=== PATIENT | female | born 2000 | race Caucasian/White ===

== ENCOUNTER 2022-01-17 14:09 | Emergency (ER) | payer BC ==
[2022-01-17 15:04] LABS: #Eosinphils 0.1 10x3/uL (0.0-0.5); #Monocytes 0.6 10x3/uL (0.0-1.1); #Neutrophils 4.5 10x3/uL (1.5-8.4); %Basophils 0.6 % (0.0-2.0); %Eosinophils 1.7 % (0.0-6.0); %Lymphocytes 24.9 % (18.0-47.0); %Monocytes 8.7 % (0.0-10.0); %Neutrophils 63.7 % (40.0-75.0); Hemoglobin 10.9 g/dL (12.0-15.5); Mean Corpuscular HGB CONC 33.6 g/dL (32.0-36.0); Mean Corpuscular Hemoglobin 26.3 pg (27.0-33.0); Mean Corpuscular Volume 78.1 fl (81.6-98.3); Mean Platelet Volume 9.7 fl (7.4-10.4); Platelet Count 265 10x3/uL (150-450); RBC Distribution Width 14.8 % (11.5-14.5); Red Blood Cell (RBC) Count 4.15 10x6/uL (3.90-5.03)
[2022-01-17 15:08] LABS: ALT (SGPT) 10 U/L (8-55); AST (SGOT) 14 U/L (5-34); Albumin 3.6 g/dL (3.5-5.0); Alkaline Phosphatase 42 U/L (40-110); Anion Gap 12 mmol/L (10-20); BUN (Urea Nitrogen) 9 mg/dL (7.0-18.7); Bilirubin, Total 0.9 mg/dL (0.2-1.2); Calc. Creatinine Clearance 0 mL/min (70-130); Calcium 8.3 mg/dL (7.8-10.44); Carbon Dioxide 24 mmol/L (22-29); Chloride 106 mmol/L (98-107); Globulin 2.8 g/dL (2.4-3.5); Glucose 99 mg/dL (70-105); Potassium 3.6 mmol/L (3.5-5.1); Protein, Total 6.4 g/dL (6.0-8.3); Sodium 138 mmol/L (136-145)
[2022-01-17 15:36] LABS: Bilirubin Neg (Negative); Blood, Urine 250 (Negative); Clarity Clear (Clear); Glucose, Urine (Dipstick) Normal (Negative); Ketone, Urine Negative (Negative); Leukocyte Negative (Negative); Nitrite Negative (Negative); Protein, Urine (Dipstick) 15 mg/dl (Neg-Trace)
[2022-01-17 15:50] LABS: Bacteria/HPF Rare-Few HPF (None Seen); RBC/HPF Greater than 50 HPF (0-3); Squamous Epithelial 0-3 HPF (0-3); WBC/HPF 0-3 HPF (0-3)
== END 2022-01-17 16:19 | disposition home or self-care (01) ==
LOC: CSHERS 14:09
DX: O20.9 Hemorrhage in early pregnancy, unspecified (principal); O99.891 Other specified diseases and conditions complicating pregnancy; R10.9 Unspecified abdominal pain; Z3A.14 14 weeks gestation of pregnancy
CPT/HCPCS: 36415; 76815; 80053; 81003; 81015; 84702; 85025; 86900; 86901

== ENCOUNTER 2022-07-02 17:53 | Inpatient (IN) | payer BC ==
[~2022-07-02 17:53] MED LIST: Bupivacaine/Epinephrine 0.25% 30 ML VIAL ONE
[2022-07-02] MEDS: Lactated Ringer's 1,000 ML IV SCH (18:12)
[2022-07-02] MEDS: Magnesium Sulfate 20 gm/500 ml 20 GM/500 ML BAG IVPB SCH (18:12)
[2022-07-02] MEDS ORDERED: Lorazepam 2 MG/ML VIAL SLOW IVP PRN (18:23)
[2022-07-02] MEDS ORDERED: Ondansetron PF 4 MG/2 ML Vial IVP PRN (18:23)
[2022-07-02] MEDS ORDERED: Butorphanol Tartrate 1 MG/ML VIAL SLOW IVP PRN (18:23)
[2022-07-02] MEDS ORDERED: Calcium Gluc 4.6 MEQ/10 ML (100 MG/ML) SLOW IVP PRN (18:23)
[2022-07-02] MEDS ORDERED: Promethazine HCl 25 MG/ML VIAL IM PRN (18:23)
[2022-07-02] MEDS ORDERED: Labetalol HCl 100 MG/20 ML VIAL SLOW IVP PRN (18:23)
[2022-07-02] MEDS ORDERED: hydrALAZINE 20 MG/ML VIAL SLOW IVP PRN ×2 (18:23)
[2022-07-02] MEDS ORDERED: Acetaminophen 500 MG TAB PO PRN (18:23)
[2022-07-02] MEDS ORDERED: Magnesium Sulfate 20 gm/500 ml 20 GM/500 ML BAG IVPB SCH (18:30)
[2022-07-02] MEDS ORDERED: Ondansetron PF 4 MG/2 ML Vial ONE (18:30)
[2022-07-02] MEDS ORDERED: Lorazepam 2 MG/ML VIAL ONE (18:34)
[2022-07-02] MEDS ORDERED: hydrALAZINE 20 MG/ML VIAL ONE (18:35)
[2022-07-02] MEDS ORDERED: Magnesium Sulfate 20 gm/500 ml 20 GM/500 ML BAG ONE (18:35)
[2022-07-02] MEDS ORDERED: Labetalol HCl 100 MG/20 ML VIAL ONE (18:35)
[2022-07-02 18:51] VITALS: BMI 28.3
[2022-07-02 19:33] LABS: #Basophils 0.1 10x3/uL (0.0-0.2); #Eosinphils 0.1 10x3/uL (0.0-0.5); #Monocytes 0.9 10x3/uL (0.0-1.1); %Basophils 0.6 % (0.0-2.0); %Eosinophils 0.8 % (0.0-6.0); %Lymphocytes 14.1 % (18.0-47.0); %Monocytes 6.6 % (0.0-10.0); %Neutrophils 75.5 % (40.0-75.0); Hemoglobin 11.6 g/dL (12.0-15.5); Mean Corpuscular HGB CONC 32.3 g/dL (32.0-36.0); Mean Corpuscular Hemoglobin 24.9 pg (27.0-33.0); Mean Platelet Volume 10.4 fl (7.4-10.4); Platelet Count 284 10x3/uL (150-450); RBC Distribution Width 27.9 % (11.5-14.5); Red Blood Cell (RBC) Count 4.66 10x6/uL (3.90-5.03); White Blood Cell (WBC) Count 13.2 10x3/uL (3.5-10.5)
[2022-07-02 19:39] LABS: Amphetamine Detected (NotDetected); Barbiturates Screen Not Detected (NotDetected); Benzodiazepine Screen Not Detected (NotDetected); Cocaine Metabolite Screen Not Detected (NotDetected); Methadone Not Detected (NotDetected); Methamphetamine Not Detected (NotDetected); Opiate Screen Not Detected (NotDetected); Oxycodone Screen Not Detected (NotDetected); Phencyclidine (PCP) Not Detected (NotDetected); THC/Cannabinoid Screen Not Detected (NotDetected); Tricyclic Screen Not Detected (NotDetected)
[2022-07-02 19:46] LABS: Creatinine, Urine 37.85 mg/dL (47-110)
[2022-07-02 19:50] LABS: ALT (SGPT) 38 U/L (8-55); AST (SGOT) 72 U/L (5-34); Albumin 3.2 g/dL (3.5-5.0); Alkaline Phosphatase 178 U/L (40-110); Anion Gap 17 mmol/L (10-20); BUN (Urea Nitrogen) 11 mg/dL (7.0-18.7); Bilirubin, Total 0.4 mg/dL (0.2-1.2); Calc. Creatinine Clearance 127 mL/min (70-130); Calcium 9.3 mg/dL (7.8-10.44); Carbon Dioxide 18 mmol/L (22-29); Chloride 106 mmol/L (98-107); Estimated GFR 100; Globulin 3.4 g/dL (2.4-3.5); Glucose 89 mg/dL (70-105); Protein, Total 6.6 g/dL (6.0-8.3); Sodium 137 mmol/L (136-145)
[2022-07-02 20:24] LABS: Hep B Surf Ag Non-Reactive S/CO (NonReactive); Syphilis Antibody Nonreactive (Nonreactive); Syphilis Antibody Index 0.05 S/CO (<1.00 Non-Reactive)
[2022-07-02 20:25] LABS: HBSAg Index 0.17 S/CO (0-0.99)
[2022-07-02 20:40] LABS: SARS-CoV-2 NAA Rapid Test Not Detected (NotDetected)
[2022-07-02] MEDS ORDERED: Ibuprofen 800 MG TAB PO PRN (21:17)
[2022-07-02] MEDS ORDERED: Misoprostol 200 MCG TAB PR PRN (21:17)
[2022-07-02] MEDS ORDERED: Lidocaine 1% (PF) 30 ML VIAL SC PRN (21:17)
[2022-07-02] MEDS ORDERED: NS w/ Oxytocin 30 units 500 ML IV SCH ×2 (21:30)
[2022-07-02] MEDS ORDERED: hydrOXYzine 25 MG TAB PO SCH (21:45)
[2022-07-03] MEDS ORDERED: Fentanyl 2 mcg/Bup 0.1% Cadd 100 ML ONE (06:35)
[2022-07-03 07:04] LABS: #Basophils 0.1 10x3/uL (0.0-0.2); #Monocytes 0.7 10x3/uL (0.0-1.1); #Neutrophils 9.6 10x3/uL (1.5-8.4); %Basophils 0.5 % (0.0-2.0); %Eosinophils 0.1 % (0.0-6.0); %Lymphocytes 12.6 % (18.0-47.0); %Monocytes 5.8 % (0.0-10.0); %Neutrophils 79.3 % (40.0-75.0); Hemoglobin 11.2 g/dL (12.0-15.5); Mean Corpuscular HGB CONC 32.9 g/dL (32.0-36.0); Mean Corpuscular Hemoglobin 25.3 pg (27.0-33.0); Mean Corpuscular Volume 76.7 fl (81.6-98.3); Mean Platelet Volume 10.3 fl (7.4-10.4); Platelet Count 237 10x3/uL (150-450); Red Blood Cell (RBC) Count 4.43 10x6/uL (3.90-5.03)
[2022-07-03 07:13] LABS: ALT (SGPT) 33 U/L (8-55); AST (SGOT) 59 U/L (5-34); Albumin 2.9 g/dL (3.5-5.0); Alkaline Phosphatase 173 U/L (40-110); Anion Gap 16 mmol/L (10-20); BUN (Urea Nitrogen) 10 mg/dL (7.0-18.7); Bilirubin, Total 0.4 mg/dL (0.2-1.2); Calc. Creatinine Clearance 116 mL/min (70-130); Calcium 7.8 mg/dL (7.8-10.44); Carbon Dioxide 19 mmol/L (22-29); Chloride 104 mmol/L (98-107); Estimated GFR 90; Globulin 3.4 g/dL (2.4-3.5); Glucose 94 mg/dL (70-105); Magnesium 6.8 mg/dL (1.6-2.6); Protein, Total 6.3 g/dL (6.0-8.3); Sodium 135 mmol/L (136-145)
[2022-07-03] MEDS ORDERED: Acetaminophen 325 MG TAB PO PRN (08:05)
[2022-07-03] MEDS ORDERED: Naloxone HCl 0.4 mg/ml Vial IVP PRN ×2 (08:05)
[2022-07-03] MEDS ORDERED: diphenhydrAMINE 50 MG/ML VIAL IVP PRN (08:05)
[2022-07-03] MEDS ORDERED: Lactated Ringer's 500 ML IV PRN (08:05)
[2022-07-03] MEDS ORDERED: Promethazine HCl 25 MG/ML VIAL IM PRN (08:05)
[2022-07-03] MEDS ORDERED: Ondansetron PF 4 MG/2 ML Vial IVP PRN (08:05)
[2022-07-03] MEDS ORDERED: ePHEDrine Sulfate 50 MG/10 ML VIAL SLOW IVP PRN (08:05)
[2022-07-03] MEDS ORDERED: Moisturizing Cream (Eucerin) 113 GM JAR TOP PRN (08:05)
[2022-07-03] MEDS ORDERED: Fentanyl 2 mcg/Bupivacaine 0.1% Cassette 100 ML EPIDURAL SCH (08:15)
[2022-07-03] MEDS ORDERED: Communication Order-Pharmacy FS SCH (08:15)
[2022-07-03] MEDS ORDERED: Milk Of Magnesia 30 ML UDCUP PO PRN (10:20)
[2022-07-03] MEDS ORDERED: Calcium Gluc 4.6 MEQ/10 ML (100 MG/ML) SLOW IVP PRN (10:20)
[2022-07-03] MEDS ORDERED: Lorazepam 2 MG/ML VIAL SLOW IVP PRN (10:20)
[2022-07-03] MEDS ORDERED: Boostrix 0.5 ML (Tdap) VIAL IM ONE (10:20)
[2022-07-03] MEDS ORDERED: Bisacodyl 10 MG SUPP PR PRN (10:20)
[2022-07-03] MEDS ORDERED: hydrALAZINE 20 MG/ML VIAL SLOW IVP PRN (10:20)
[2022-07-03] MEDS: Lactated Ringer's 1,000 ML IV SCH (13:10)
[2022-07-03] MEDS ORDERED: Labetalol HCl 100 MG TAB PO SCH ×2 (13:15→21:00)
[2022-07-03] MEDS: Ibuprofen 800 MG TAB PO SCH ×2 (13:24→22:37)
[2022-07-03] MEDS: Magnesium Sulfate 20 gm/500 ml 20 GM/500 ML BAG IVPB SCH (13:27)
[2022-07-03] MEDS: Ferrous Sulfate 325 MG TAB PO SCH (17:21)
[2022-07-03] MEDS: guaiFENesin ER 600 MG TAB PO PRN (18:47)
[2022-07-03] MEDS ORDERED: Docusate 100 MG CAP PO SCH (21:00)
[2022-07-04 05:33] LABS: ALT (SGPT) 22 U/L (8-55); AST (SGOT) 24 U/L (5-34); Albumin 2.3 g/dL (3.5-5.0); Alkaline Phosphatase 115 U/L (40-110); Anion Gap 12 mmol/L (10-20); BUN (Urea Nitrogen) 9 mg/dL (7.0-18.7); Bilirubin, Total 0.2 mg/dL (0.2-1.2); Calc. Creatinine Clearance 120 mL/min (70-130); Calcium 7.4 mg/dL (7.8-10.44); Carbon Dioxide 22 mmol/L (22-29); Chloride 108 mmol/L (98-107); Estimated GFR 93; Globulin 2.7 g/dL (2.4-3.5); Glucose 96 mg/dL (70-105); Potassium 4.2 mmol/L (3.5-5.1); Sodium 138 mmol/L (136-145)
[2022-07-04 06:16] LABS: #Eosinphils 0.1 10x3/uL (0.0-0.5); #Monocytes 0.8 10x3/uL (0.0-1.1); #Neutrophils 6.4 10x3/uL (1.5-8.4); %Basophils 0.4 % (0.0-2.0); %Eosinophils 1.5 % (0.0-6.0); %Lymphocytes 23.1 % (18.0-47.0); %Monocytes 7.8 % (0.0-10.0); %Neutrophils 66.6 % (40.0-75.0); Hemoglobin 9.7 g/dL (12.0-15.5); Macrocytosis SLIGHT = 6-15 cells (100X) (0-5/hpf); Mean Corpuscular HGB CONC 32.1 g/dL (32.0-36.0); Mean Corpuscular Hemoglobin 25.3 pg (27.0-33.0); Mean Corpuscular Volume 78.6 fl (81.6-98.3); Mean Platelet Volume 9.9 fl (7.4-10.4); Microcytosis MODERATE=15-30 cells (100X) (0-5/hpf); Platelet Count 208 10x3/uL (150-450); Red Blood Cell (RBC) Count 3.84 10x6/uL (3.90-5.03); White Blood Cell (WBC) Count 9.6 10x3/uL (3.5-10.5)
[2022-07-04 06:18] LABS: Platelet Morphology Comment Appears Adequate
[2022-07-04] MEDS: guaiFENesin ER 600 MG TAB PO PRN ×2 (07:01→23:56)
[2022-07-04] MEDS: Ibuprofen 800 MG TAB PO SCH ×3 (07:11→21:31)
[2022-07-04] MEDS ORDERED: Preparation H Ointment 28 GM TUBE PR PRN (07:55)
[2022-07-04] MEDS ORDERED: diphenhydrAMINE 25 MG CAP PO PRN (07:55)
[2022-07-04] MEDS ORDERED: Bisacodyl 10 MG SUPP PR PRN (07:55)
[2022-07-04] MEDS ORDERED: hydrALAZINE 20 MG/ML VIAL SLOW IVP PRN (07:55)
[2022-07-04] MEDS ORDERED: Lanolin Ointment 7 GM TUBE TOP PRN (07:55)
[2022-07-04] MEDS ORDERED: Milk Of Magnesia 30 ML UDCUP PO PRN (07:55)
[2022-07-04] MEDS ORDERED: Ondansetron PF 4 MG/2 ML Vial IVP PRN (07:55)
[2022-07-04] MEDS ORDERED: Ferrous Sulfate 325 MG TAB PO SCH ×2 (08:00→08:30)
[2022-07-04] MEDS: Ferrous Sulfate 325 MG TAB PO SCH ×2 (08:01→14:51)
[2022-07-04] MEDS: Amoxicillin/Potassium Clav 875 MG TAB PO SCH ×2 (09:03→21:32)
[2022-07-04] MEDS: Prenatal Vitamin 1 TAB PO SCH (09:03)
[2022-07-04] MEDS: Docusate 100 MG CAP PO SCH ×2 (09:03→21:31)
[2022-07-04] MEDS: Labetalol HCl 200 MG TAB PO SCH ×2 (09:04→21:32)
[2022-07-04] MEDS: Lactated Ringer's 1,000 ML IV SCH ×2 (09:09→09:10)
[2022-07-05] MEDS: Ibuprofen 800 MG TAB PO SCH ×2 (05:25→13:24)
[2022-07-05] MEDS ORDERED: Boostrix 0.5 ML (Tdap) VIAL IM ONE (07:55)
[2022-07-05] MEDS: Amoxicillin/Potassium Clav 875 MG TAB PO SCH (08:09)
[2022-07-05] MEDS: Ferrous Sulfate 325 MG TAB PO SCH ×2 (08:09→17:10)
[2022-07-05] MEDS: Prenatal Vitamin 1 TAB PO SCH (08:09)
[2022-07-05] MEDS: Docusate 100 MG CAP PO SCH (08:09)
[2022-07-05] MEDS ORDERED: NIFEdipine XL 60 MG TAB PO SCH (09:00)
[2022-07-05] MEDS: guaiFENesin ER 600 MG TAB PO PRN (13:24)
[2022-07-05 15:18] VITALS: BP 142/84; TEMP 98.8
== END 2022-07-05 17:30 | disposition home or self-care (01) | DRG 807 ==
LOC: CSHERS 17:53 → CSHLD/OP 18:17 → CSHLD 19:09 → CSHPP 07-04 09:40
PROVIDERS: ADMIT Obstetrics & Gynecology; ATTEND Obstetrics & Gynecology
PROC: 10E0XZZ Delivery of Products of Conception, External Approach (ICD-10-PCS; principal; 2022-07-03)
PROC: 10907ZC Drainage of Amniotic Fluid, Therapeutic from Products of Conception, Via Natural or Artificial Opening (ICD-10-PCS; 2022-07-03)
PROC: 3E033VJ Introduction of Other Hormone into Peripheral Vein, Percutaneous Approach (ICD-10-PCS; 2022-07-03)
DX: O14.14 Severe pre-eclampsia complicating childbirth (principal); Z37.0 Single live birth; Z20.822 Contact with and (suspected) exposure to COVID-19; Z3A.38 38 weeks gestation of pregnancy; F32.A Depression, unspecified; F41.9 Anxiety disorder, unspecified; O99.344 Other mental disorders complicating childbirth; Z79.899 Other long term (current) drug therapy; Z88.2 Allergy status to sulfonamides; O69.81X0 Labor and delivery complicated by cord around neck, without compression, not applicable or unspecified; D64.9 Anemia, unspecified; O90.81 Anemia of the puerperium; J01.90 Acute sinusitis, unspecified; O99.53 Diseases of the respiratory system complicating the puerperium; O99.324 Drug use complicating childbirth; F15.90 Other stimulant use, unspecified, uncomplicated
CPT/HCPCS: 36415; 51702; 71045; 80053; 80306; 82570; 83735; 84156; 85025; 86780; 86850; 86900; 86901; 87340; 93005; 93010; 99285; J0360; J2060; J2405; J2590; J3475; U0002